=== PATIENT | male | born 1995 | race American Indian/Alaskan Native ===

== ENCOUNTER 2023-01-07 06:09 | Day surgery (SDC) | payer OTHER ==
[2023-01-05 16:49] VITALS: BMI 25.1
[2023-01-07] MEDS ORDERED: VANCOMYCIN 1,000 MG VIAL (RESTRICTED TO ID ONLY) ONE (07:14)
[2023-01-07] MEDS ORDERED: BUPIVACAINE HCL/PF 2.5 MG/ML - 30 ML VIAL IJ ONE (07:15)
[2023-01-07] MEDS ORDERED: BUPIVACAINE HCL/EPINEPHRINE/PF 30 ML VIAL IJ ONE ×2 (07:15→07:38)
[2023-01-07] MEDS ORDERED: EPINEPHrine 1:1,000 1,000 MCG/ML ML ONE (07:15)
[2023-01-07] MEDS ORDERED: BUPIVACAINE HCL/PF 0.5% (5 MG/ML) 30 ML VIAL IJ ONE (07:28)
[2023-01-07] MEDS ORDERED: MIDAZOLAM HCL 2 MG/2 ML SINGLE DOSE VIAL ONE (07:28)
[2023-01-07] MEDS ORDERED: BUPIVACAINE LIPOSOME/PF (EXPAREL) 266 MG/20 ML VIAL ONE (07:29)
[2023-01-07] MEDS ORDERED: ACETAMINOPHEN INJECTION 100 ML IVPB ONE (07:29)
[2023-01-07] MEDS ORDERED: PROPOFOL 40 ML ONE (07:46)
[2023-01-07] MEDS ORDERED: ceFAZolin SODIUM 1 GM VIAL ONE ×2 (07:59)
[2023-01-07] MEDS ORDERED: TRANEXAMIC ACID 1000 MG/10 ML VIAL ONE (08:02)
[2023-01-07] MEDS ORDERED: PROPOFOL 20 ML ONE ×2 (08:13→09:27)
[2023-01-07] MEDS ORDERED: DEXAMETHASONE SOD PHOSPHATE 4 MG/1 ML VIAL ONE (08:15)
[2023-01-07] MEDS ORDERED: ONDANSETRON 4 MG/2 ML VIAL ONE (08:16)
[2023-01-07] MEDS ORDERED: KETOROLAC TROMETHAMINE 30 MG/1 ML VIAL ONE (08:16)
[2023-01-07] MEDS ORDERED: oxyCODONE HCL 5 MG TABLET PO PRN ×2 (09:46)
[2023-01-07] MEDS ORDERED: ONDANSETRON 4 MG/2 ML VIAL IVPUSH PRN (09:46)
[2023-01-07] MEDS ORDERED: LACTATED RINGERS SOLUTION 1,000 ML IV SCH (10:00)
[2023-01-07 10:56] VITALS: RESP 19; TEMP 97.3
[2023-01-07 11:19] VITALS: BP 114/59; PULSE 72
== END 2023-01-07 12:00 | disposition home or self-care (01) ==
LOC: FASU 06:09
PROVIDERS: ATTEND Orthopaedic Surgery
PROC: 0MRP47Z Replacement of Left Knee Bursa and Ligament with Autologous Tissue Substitute, Percutaneous Endoscopic Approach (ICD-10-PCS; principal; 2023-01-07 08:16)
DX: S83.511A Sprain of anterior cruciate ligament of right knee, initial encounter (principal); M23.52 Chronic instability of knee, left knee; X58.XXXA Exposure to other specified factors, initial encounter; Y93.9 Activity, unspecified; Y92.9 Unspecified place or not applicable
CPT/HCPCS: 94760; C1713